=== PATIENT | male | born 1990 | race Caucasian/White ===

== ENCOUNTER 2017-01-07 00:08 | Emergency (ER) | payer BC, OTHER ==
[~2017-01-07] VITALS: Ht 182.9 cm; Wt 95.4 kg
[~2017-01-07 00:08] MED LIST: ZOFR4TAB3 SL
[2017-01-07 00:12] VITALS: BP 132/91; PULSE 71; RESP 16; TEMP 98.5; O2SAT 97
== END 2017-01-07 03:19 | disposition left against medical advice (07) ==
LOC: PHED 00:08
DX: K08.89 Other specified disorders of teeth and supporting structures (principal)
CPT/HCPCS: 99281

== ENCOUNTER 2017-01-22 21:03 | Emergency (ER) | payer BC ==
[~2017-01-22] VITALS: Ht 182.9 cm; Wt 98.0 kg
[2017-01-22 21:05] VITALS: BP 154/101; PULSE 80; RESP 16; TEMP 98; O2SAT 98
[2017-01-22] MEDS ORDERED: PROCHLORPERAZINE INJ 10 MG/2 ML VIAL IVS ONE (21:15)
[2017-01-22] MEDS ORDERED: KETOROLAC TROMETHAMINE 30 MG/ML (IVP) VIAL IV PUSH ONE (21:15)
[2017-01-22] MEDS ORDERED: diphenhydrAMINE HCL 50 MG/ML VIAL IV PUSH ONE (21:15)
[2017-01-22] MEDS ORDERED: SODIUM CHLORID 0.9% 500 ML INJ 500 ML IV ONE (21:15)
[2017-01-22] MEDS ORDERED: ULTR50TA5 PO (21:22)
[2017-01-22] MEDS ORDERED: ZOFR4TAB3 SL (21:22)
[2017-01-22] MEDS ORDERED: BUTA1CAP PO (21:22)
--- NOTE | 2017-01-22 21:22 | PD ---
HPI Chief Complaint: Headache Time Seen by Provider: 21:11 Travel History International Travel<30 days: No Contact w/Intl Traveler<30days: No Traveled to known affect area: No History of Present Illness HPI 26-year-old male complains of headache. Patient has history of recurrent migraine headache. Patient had CT scan done last year was normal. Patient states that headache started about 12 hours prior coming to the emergency room. Patient states the headache throbbing headache started on the forehead radiation to back the head. Patient denies any visual change. Patient complains of photophobia. Patient complaining of nausea but no vomiting. Patient denies any neck pain. Patient denies any chest pain or shortness of breath. Patient denies abdominal pain. Patient denies any focal weakness or numbness of extremity. Patient states the headache is a typical migraine headache the past. Patient denies any recent head injury. Patient denies any fever chills. On a scale of 1 headache is a 9. PFSH Past Medical History Diminished Hearing: No Immunizations Current: Yes Migraines: Yes Past Surgical History Cholecystectomy: Yes Tonsillectomy: Yes Tympanostomy Tube: Yes Social History Alcohol Use: Yes (occ) Tobacco Use: Yes (1 ppd) Substance Use: No Allergies-Medications (Allergen,Severity, Reaction): Coded Allergies: Percocet (Verified Allergy, Severe, 01/22/17) Shellfish (Verified Allergy, Severe, Anaphylaxis, 01/22/17) Betadine (Verified Allergy, Unknown, 01/22/17) Iodine (Verified Allergy, Unknown, Anaphylaxis, 01/22/17) Reported Meds & Prescriptions Reported Meds & Active Scripts Active Ultram (Tramadol HCl) 50 Mg Tab 50 Mg PO Q6H PRN Zofran Odt (Ondansetron Odt) 4 Mg Tab 4 Mg SL Q6HR PRN Fioricet (Vzvwggljle-Lcqbxzmwljakg-Zumyvfbj) 50-300-40 Mg Cap 1-2 Cap PO Q6H PRN Review of Systems General / Constitutional: No: Fever Eyes: Positive: Photophobia, No: Visual changes HENT: Positive: Headaches Cardiovascular: No: Chest Pain or Discomfort Respiratory: No: Shortness of Breath Gastrointestinal: Positive: Nausea, No: Abdominal Pain Genitourinary: No: Dysuria Musculoskeletal: No: Pain Skin: No Rash Neurologic: No: Weakness Psychiatric: No: Depression Endocrine: No: Polydipsia Hematologic/Lymphatic: No: Easy Bruising Physical Exam Narrative GENERAL: Well-nourished, well-developed patient. SKIN: Warm and dry. HEAD: Normocephalic. EYES: No scleral icterus. No injection or drainage. Pupils 4 mm equal reactive. NECK: Supple, trachea midline. No JVD or lymphadenopathy. No meningismus CARDIOVASCULAR: Regular rate and rhythm without murmurs, gallops, or rubs. RESPIRATORY: Breath sounds equal bilaterally. No accessory muscle use. GASTROINTESTINAL: Abdomen soft, non-tender, nondistended. MUSCULOSKELETAL: No cyanosis, or edema. BACK: Nontender without obvious deformity. No CVA tenderness. Neurologic exam: Patient's awake alert oriented 3. No obvious focal neurological deficit. Data Data Last Documented VS Vital Signs Date Time Temp Pulse Resp B/P Pulse Ox O2 Delivery O2 Flow Rate FiO2 01/22/17 21:16 97 Room Air 01/22/17 21:05 98.0 80 16 154/101 Orders Sodium Chlorid 0.9% 500 Ml Inj (Ns 500 M (01/22/17 21:15) Prochlorperazine Inj (Compazine Inj) (01/22/17 21:15) Ketorolac Inj (Toradol Inj) (01/22/17 21:15) Diphenhydramine Inj (Benadryl Inj) (01/22/17 21:15) MDM Medical Decision Making Medical Screen Exam Complete: Yes Emergency Medical Condition: Yes Differential Diagnosis Differential diagnosis including migraine headache, tension headache, cluster headache, encephalitis. Narrative Course 26-year-old male with headache. History of migraine headache. Normal saline solution 500 cc IV bolus. Toradol 30 mg IV. Benadryl 25 mg IV. Compazine 10 mg IV. 2204 PM. Reexamination, patient states that the headache resolved completely. Diagnosis Primary Impression: Cephalgia Qualified Code: R51 - Nonintractable episodic headache, unspecified headache type Patient Instructions: General Instructions Additional Instructions: Take medications as directed. Follow-up with neurologist and personal physician. Return if persistent problem or worse. Med/Other Pt SpecificInfo: Prescription(s) given Scripts Tramadol (Ultram)50 Mg Tab50 Mg PO Q6H PRN (HEADACHE) #20 TAB Ref 0 Prov:Wilver Ramos MD 01/22/17 Ondansetron Odt (Zofran Odt)4 Mg Tab4 Mg SL Q6HR PRN (Nausea/Vomiting) #10 TAB Ref 0 Prov:Wilver Ramos MD 01/22/17 Zjnfvrdhvj-Mjchnrzladjow-Yqtskxrm (Fioricet)50-300-40 Mg Cap1-2 Cap PO Q6H PRN ( HEADACHE) #30 CAP Ref 0 Prov:Wilver Ramos MD 01/22/17 Disposition: 01 DISCHARGE HOME Condition: Stable Wilver Ramos MD Jan 22, 2017 21:22
[2017-01-22 22:18] VITALS: BP 146/88; PULSE 78; RESP 18; O2SAT 98
== END 2017-01-22 22:20 | disposition home or self-care (01) ==
LOC: PHED 21:03
DX: R51 Headache (principal); H53.149 Visual discomfort, unspecified; F17.210 Nicotine dependence, cigarettes, uncomplicated
CPT/HCPCS: 96374; 96375; 99283; J0780; J1200; J1885; J7040

== ENCOUNTER 2017-02-09 04:46 | Emergency (ER) | payer BC ==
[~2017-02-09] VITALS: Ht 182.9 cm; Wt 95.7 kg
[~2017-02-09 04:46] MED LIST changes: +BUTA1CAP PO; +ULTR50TA5 PO
[2017-02-09 04:51] VITALS: BP 137/100; PULSE 75; RESP 16; TEMP 98.1; O2SAT 100
[2017-02-09] MEDS ORDERED: AMOX875T PO (05:19)
[2017-02-09] MEDS ORDERED: IBUP800T23 PO (05:19)
--- NOTE | 2017-02-09 05:21 | PD ---
HPI Chief Complaint: Oral / Dental Pain or Problem Time Seen by Provider: 05:05 Travel History International Travel<30 days: No Contact w/Intl Traveler<30days: No Traveled to known affect area: No History of Present Illness HPI The patient is a 26-year-old male that has right lower toothache, the pain started getting bad at 1:00 this morning. He states he has not gotten any sleep. He has had problems with tooth #32 but does not have the money to have it taken out. He denies any other dental problems with this time. He denies any fever. He denies any history of diabetes. He got 20 tramadol 50 mg tablets on the fourth of this month. PFSH Past Medical History ADHD: Yes Diminished Hearing: No Immunizations Current: Yes Migraines: Yes Tetanus Vaccination: > 5 Years Influenza Vaccination: No Past Surgical History Cholecystectomy: Yes Tonsillectomy: Yes Tympanostomy Tube: Yes Social History Alcohol Use: No (QUIT DEC 2016) Tobacco Use: Yes (01/22 PPD) Substance Use: No Allergies-Medications (Allergen,Severity, Reaction): Coded Allergies: Percocet (Verified Allergy, Severe, 02/09/17) Shellfish (Verified Allergy, Severe, Anaphylaxis, 02/09/17) Betadine (Verified Allergy, Unknown, 02/09/17) Iodine (Verified Allergy, Unknown, Anaphylaxis, 02/09/17) Reported Meds & Prescriptions Reported Meds & Active Scripts Active Ultram (Tramadol HCl) 50 Mg Tab 50 Mg PO Q6H PRN Zofran Odt (Ondansetron Odt) 4 Mg Tab 4 Mg SL Q6HR PRN Fioricet (Zccqzlxivn-Btrallpwfngez-Wqbaraqx) 50-300-40 Mg Cap 1-2 Cap PO Q6H PRN Review of Systems Except as stated in HPI: all other systems reviewed are Neg Physical Exam Narrative GENERAL: Well-nourished, well-developed patient in slight apparent distress with areas right toothache. His vital signs show blood pressure 137/100 but otherwise normal. SKIN: Warm and dry. HEAD: Normocephalic. EYES: No scleral icterus. No injection or drainage. NECK: Supple, trachea midline. No JVD or lymphadenopathy. CARDIOVASCULAR: Regular rate and rhythm without murmurs, gallops, or rubs. RESPIRATORY: Breath sounds equal bilaterally. No accessory muscle use. GASTROINTESTINAL: Abdomen soft, non-tender, nondistended. MUSCULOSKELETAL: No cyanosis, or edema. BACK: Nontender without obvious deformity. No CVA tenderness. DENTAL: No loose or chipped teeth. No malocclusion. Tooth #32 is broken down but there is no drainable abscess associated with this tooth. Data Data Last Documented VS Vital Signs Date Time Temp Pulse Resp B/P Pulse Ox O2 Delivery O2 Flow Rate FiO2 02/09/17 04:51 98.1 75 16 137/100 100 MDM Medical Decision Making Medical Screen Exam Complete: Yes Emergency Medical Condition: Yes Medical Record Reviewed: Yes Differential Diagnosis Dental infection, drainable abscess, Angus's anginahighly unlikely Narrative Course The patient has a dental infection without a drainable abscess. He will be given amoxicillin with multiple refills. Diagnosis Primary Impression: Dental infection Additional Instructions: As we discussed, it is necessary to follow-up with a dentist. You have a broken down tooth on that last molar and this is likely to create problems for years until the dentist takes care of it. Med/Other Pt SpecificInfo: Prescription(s) given Scripts Ibuprofen 800 Mg [id number] Mg PO TID #44 TAB Ref 0 Prov:Gary Liang MD 02/09/17 Amoxicillin 875 Mg [id number] Mg PO BID 10 Days Ref 0 Prov:Gary Liang MD 02/09/17 Disposition: 01 DISCHARGE HOME Condition: Stable Gary Liang MD Feb 09, 2017 05:21
[2017-02-09] MEDS ORDERED: KETOROLAC TROMETHAMINE 60 MG/2 ML (IM) VIAL IM ONE (05:30)
[2017-02-09] MEDS ORDERED: AMOXICILLIN 875 MG TAB PO ONE (05:30)
[2017-02-09 05:35] VITALS: BP 140/91
== END 2017-02-09 05:36 | disposition home or self-care (01) ==
LOC: PHED 04:46
DX: K04.7 Periapical abscess without sinus (principal); F17.210 Nicotine dependence, cigarettes, uncomplicated
CPT/HCPCS: 96372; 99282; J1885

== ENCOUNTER 2017-07-13 11:05 | Emergency (ER) | payer OTHER, BC ==
[~2017-07-13] VITALS: Ht 180.3 cm; Wt 101.0 kg
[~2017-07-13 11:05] MED LIST changes: +AMOX875T PO; +IBUP800T23 PO
[2017-07-13 11:24] VITALS: BP 135/84; PULSE 72; RESP 16; TEMP 98.6; O2SAT 99
[2017-07-13] MEDS ORDERED: NAPR375T PO (11:41)
[2017-07-13] MEDS ORDERED: IBUP-232 PO (11:41)
[2017-07-13] MEDS ORDERED: ASPI325T PO (11:41)
[2017-07-13] MEDS ORDERED: TIZA2TAB PO (11:41)
--- NOTE | 2017-07-13 11:48 | PD ---
HPI Chief Complaint: Back/ Neck Pain or Injury Time Seen by Provider: 11:33 Travel History International Travel<30 days: No Contact w/Intl Traveler<30days: No Traveled to known affect area: No History of Present Illness HPI 27-year-old male who presents emergency department for evaluation of upper/mid/ low back pain status post work related injury on April 04. Patient reports the original injury occurred when he was manually lifting a 1500 pound door with other coworkers and he slipped and fell onto the ground which caused his back pain. Patient reports he is under the care of of an orthopedic surgeon, primary care, and Workmen's Comp. He reports that his current pain regimen is not controlling his pain. He reports he has been on NSAIDs, muscle relaxers, opiates and is still having pain. He reports he ran out of his medication and is currently only on NSAIDs. He reports diffuse pain in the back. He denies fever, chest pain, shortness breath, abdominal pain, incontinence, saddle anesthesia, numbness/weakness/tingling in the extremities He has had negative x- rays, MRIs, and EMGs. He reports he has 4 herniated disc. [facility] Past Medical History ADHD: Yes Diminished Hearing: No Musculoskeletal: Yes (back injury) Immunizations Current: Yes Migraines: Yes Tetanus Vaccination: > 5 Years Influenza Vaccination: No Past Surgical History Cholecystectomy: Yes Tonsillectomy: Yes Tympanostomy Tube: Yes Social History Alcohol Use: No (QUIT DEC 2016) Tobacco Use: Yes (1 pk) Substance Use: No Allergies-Medications (Allergen,Severity, Reaction): Coded Allergies: acetaminophen (Unverified Allergy, Severe, 07/13/17) oxycodone (Unverified Allergy, Severe, 07/13/17) shellfish derived (Unverified Allergy, Severe, Anaphylaxis, 07/13/17) iodine (Unverified Allergy, Unknown, Anaphylaxis, 07/13/17) potassium iodide (Unverified Allergy, Unknown, Anaphylaxis, 07/13/17) povidone-iodine (Unverified Allergy, Unknown, Anaphylaxis, 07/13/17) sodium iodide (Unverified Allergy, Unknown, Anaphylaxis, 07/13/17) sodium iodide (Unverified Allergy, Unknown, Anaphylaxis, 07/13/17) Reported Meds & Prescriptions Reported Meds & Active Scripts Active Reported Aspirin 325 Mg Tab 650 Mg PO DAILY Ibuprofen 600 Mg Tab 600 Mg PO Q8H PRN Tizanidine (Tizanidine HCl) 2 Mg Tab 2 Mg PO TID Naproxen 375 Mg Tab 375 Mg PO TID Review of Systems Except as stated in HPI: all other systems reviewed are Neg General / Constitutional: No: Fever Eyes: No: Visual changes Cardiovascular: No: Chest Pain or Discomfort Respiratory: No: Shortness of Breath Gastrointestinal: No: Abdominal Pain Musculoskeletal: Positive: Pain (back pain), No: Myalgias, Arthralgias, Limited ROM, Weakness, Cramping, Edema, Atrophy, Other Physical Exam Narrative GENERAL: Well-nourished, well-developed patient. Patient is ambulatory in the emergency department walking without difficulty. Patient appears comfortable SKIN: Focused skin assessment warm/dry. HEAD: Normocephalic. EYES: No scleral icterus. No injection or drainage. NECK: Supple, trachea midline. No JVD or lymphadenopathy. CARDIOVASCULAR: Regular rate and rhythm without murmurs, gallops, or rubs. RESPIRATORY: Breath sounds equal bilaterally. No accessory muscle use. GASTROINTESTINAL: Abdomen soft, non-tender, nondistended. MUSCULOSKELETAL: No cyanosis, or edema. 5 out of 5 strength in the upper and lower extremities. Dorsiflex and plantar flexion intact. Normal sensation. BACK: without obvious deformity. No CVA tenderness. Generalized tenderness to the paraspinous muscles in the upper mid and low back. Data Data Last Documented VS Vital Signs Date Time Temp Pulse Resp B/P (MAP) Pulse Ox O2 Delivery O2 Flow Rate FiO2 07/13/17 12:06 07/13/17 11:24 98.6 72 16 99 Orders Orders Ketorolac Inj (Toradol Inj) (07/13/17 12:00) [facility] Medical Decision Making Medical Screen Exam Complete: Yes Emergency Medical Condition: Yes Differential Diagnosis Upper/lower back pain: Back strain versus strain versus spine fracture Narrative Course 27-year-old male who presents emergency department for evaluation of upper/mid/ low back pain status post work related injury on April 04. Patient reports he is under the care of of an orthopedic surgeon, primary care, and Workmen's Comp. He reports that his current pain regimen is not controlling his pain. He reports he has been on NSAIDs, muscle relaxers, opiates and is still having pain. He reports he ran out of his medication and is currently only on NSAIDs. He reports diffuse pain in the back. He denies fever, chest pain, shortness breath, abdominal pain, incontinence, saddle anesthesia, numbness/weakness/ tingling in the extremities He has had negative x-rays, MRIs, and EMGs. He reports he has 4 herniated disc. The patient is observed ambulatory and mobile without difficulty. His physical exam is benign. Patient is instructed to follow-up with orthopedic doctor or pain management. Diagnosis Primary Impression: Back pain Qualified Codes: M54.9 - Dorsalgia, unspecified; G89.29 - Other chronic pain Referrals: Phil De La Garza MD Disposition: 01 DISCHARGE HOME Condition: Stable Amelie Mora Jul 13, 2017 11:48
[2017-07-13] MEDS ORDERED: KETOROLAC TROMETHAMINE 60 MG/2 ML (IM) VIAL IM ONE (12:00)
== END 2017-07-13 12:05 | disposition home or self-care (01) ==
LOC: PHEFT 11:05
DX: M54.9 Dorsalgia, unspecified (principal); F17.210 Nicotine dependence, cigarettes, uncomplicated
CPT/HCPCS: 96372; 99284; J1885

== ENCOUNTER 2017-09-26 01:47 | Emergency (ER) | payer SELFPAY ==
[~2017-09-26] VITALS: Ht 180.3 cm; Wt 101.0 kg
[~2017-09-26 01:47] MED LIST changes: -AMOX875T PO; +ASPI-183 PO; -BUTA1CAP PO; +IBUP-232 PO; -IBUP800T23 PO; +NAPR-855 PO; +TIZA2TAB PO; -ULTR50TA5 PO; -ZOFR4TAB3 SL
[2017-09-26 01:53] VITALS: BP 153/97; PULSE 78; RESP 18; TEMP 97.9; O2SAT 97
== END 2017-09-26 03:55 | disposition left against medical advice (07) ==
LOC: PHED 01:47
DX: R51 Headache (principal)
CPT/HCPCS: 99281

== ENCOUNTER 2017-12-06 09:41 | Emergency (ER) | payer BC ==
[~2017-12-06] VITALS: Ht 180.3 cm; Wt 98.9 kg
[2017-12-06 09:43] VITALS: BP 172/102; PULSE 86; RESP 16; TEMP 98.8; O2SAT 97
[2017-12-06] MEDS ORDERED: BENZ100 PO (09:54)
[2017-12-06] MEDS ORDERED: FLUT1SPR5 EACH NARE (09:54)
[2017-12-06] MEDS ORDERED: AUGM875T3 PO (09:54)
--- NOTE | 2017-12-06 09:57 | PD ---
HPI Chief Complaint: Cold / Flu Symptoms Time Seen by Provider: 09:50 Travel History International Travel<30 days: No Contact w/Intl Traveler<30days: No Traveled to known affect area: No History of Present Illness HPI 27-year-old male presents for evaluation of facial pressure, nasal congestion, cough. Symptoms started 11 days ago. The cough is productive with yellow sputum production. Symptoms are moderate, aggravated by coughing, not alleviated with the use of DayQuil, Mucinex, Tylenol PM. Denies fevers, chills. He does endorse chronic back pain which is worse when he coughs. No sick contacts. Denies sore throat, ear pain, recent travel, rash. No other complaints. PFSH Past Medical History Hx Anticoagulant Therapy: No ADHD: Yes Diminished Hearing: No Musculoskeletal: Yes (back injury) Immunizations Current: Yes Migraines: Yes Past Surgical History Cholecystectomy: Yes Tonsillectomy: Yes Tympanostomy Tube: Yes Social History Alcohol Use: No (QUIT DEC 2016) Tobacco Use: Yes (1 pk) Substance Use: No Allergies-Medications (Allergen,Severity, Reaction): Coded Allergies: acetaminophen (Unverified Allergy, Severe, 12/06/17) oxycodone (Unverified Allergy, Severe, 12/06/17) shellfish derived (Unverified Allergy, Severe, Anaphylaxis, 12/06/17) iodine (Unverified Allergy, Unknown, Anaphylaxis, 12/06/17) potassium iodide (Unverified Allergy, Unknown, Anaphylaxis, 12/06/17) povidone-iodine (Unverified Allergy, Unknown, Anaphylaxis, 12/06/17) sodium iodide (Unverified Allergy, Unknown, Anaphylaxis, 12/06/17) sodium iodide (Unverified Allergy, Unknown, Anaphylaxis, 12/06/17) Reported Meds & Prescriptions Reported Meds & Active Scripts Active Reported Aspirin 325 Mg Tab 650 Mg PO DAILY Ibuprofen 600 Mg Tab 600 Mg PO Q8H PRN Tizanidine (Tizanidine HCl) 2 Mg Tab 2 Mg PO TID Naproxen 375 Mg Tab 375 Mg PO TID Review of Systems Except as stated in HPI: all other systems reviewed are Neg Physical Exam Narrative GENERAL: Well-developed well-nourished male in no acute distress SKIN: Warm and dry. HEAD: Atraumatic. Normocephalic. EYES: Pupils equal and round. No scleral icterus. No injection or drainage. ENT: No nasal bleeding or discharge. Mucous membranes pink and moist. Some tenderness to palpation overlying the maxillary sinuses. Poor dentition noted. Tympanic membranes appear normal. NECK: Trachea midline. No JVD. CARDIOVASCULAR: Regular rate and rhythm. No murmur appreciated. RESPIRATORY: No accessory muscle use. Clear to auscultation. Breath sounds equal bilaterally. No crackles no wheezing or rhonchi GASTROINTESTINAL: Abdomen soft, non-tender, nondistended. Hepatic and splenic margins not palpable. Data Data Last Documented VS Vital Signs Date Time Temp Pulse Resp B/P (MAP) Pulse Ox O2 Delivery O2 Flow Rate FiO2 12/06/17 09:43 98.8 86 16 172/102 (125) 97 MDM Medical Decision Making Medical Screen Exam Complete: Yes Emergency Medical Condition: Yes Medical Record Reviewed: Yes Differential Diagnosis Rhinitis, sinusitis, bronchitis, pneumonia, influenza Narrative Course 27-year-old male with 11 days of facial pressure, nasal congestion, rhinorrhea, cough. Examination is consistent with sinusitis. The patient is being discharged with Augmentin, Flonase, Tessalon. Diagnosis Primary Impression: Sinusitis Additional Instructions: Medication as prescribed. Avoid tobacco products. Stay well hydrated well- nourished. Return for any emergent medical conditions. Med/Other Pt SpecificInfo: Prescription(s) given Scripts Benzonatate (Tessalon Perles) 100 Mg Cap 200 MG PO TID Y for COUGH, #20 CAP 0 Refills Prov: Socorro Barry MD 12/06/17 Fluticasone Nasal [place] (Flonase Nasal [place]) 50 Mcg/Act [place] 100 MCG EACH NARE BID for Allergies for 10 Days, #1 BOTTLE 0 Refills Prov: Socorro Barry MD 12/06/17 Amoxicillin-Clavulanate (Augmentin) 875-125 Mg Tab 1 TAB PO BID for Infection for 10 Days, #20 TAB 0 Refills Prov: Socorro Barry MD 12/06/17 Disposition: 01 DISCHARGE HOME Condition: Stable Jose Orlando Dec 06, 2017 09:56
[2017-12-06 10:11] VITALS: BP 137/85
== END 2017-12-06 10:17 | disposition home or self-care (01) ==
LOC: PHEFT 09:41
DX: J32.9 Chronic sinusitis, unspecified (principal); F90.9 Attention-deficit hyperactivity disorder, unspecified type; F17.210 Nicotine dependence, cigarettes, uncomplicated
CPT/HCPCS: 99284